=== PATIENT | male | born 1995 | race Caucasian/White ===

== ENCOUNTER 2017-12-06 09:54 | Emergency (ER) | payer MEDICAID ==
[2017-12-06 10:00] VITALS: BP 112/65
--- NOTE | 2017-12-06 10:03 | EDPHY ---
H & P Stated Complaint: Vomiting and diarrhea Time Seen by Provider: 12/06/17 10:03 HPI/ROS: CHIEF COMPLAINT: Vomiting and diarrhea HISTORY OF PRESENT ILLNESS: The patient presents to the ED with a 2 day history of vomiting and diarrhea. The patient reports mild associated crampy abdominal pain. He denies any fever, recent antibiotic use or travel outside the [place]. He denies any melena or hematemesis. The patient denies significant past medical history. The patient denies prior history of surgery. REVIEW OF SYSTEMS: A comprehensive 10 point review of systems is otherwise negative aside from elements mentioned in the history of present illness. Source: Patient Exam Limitations: No limitations - Personal History Current Tetanus Diphtheria and Acellular Pertussis (TDAP): Yes - Medical/Surgical History Hx Asthma: No Hx Chronic Respiratory Disease: No Hx Diabetes: No Hx Cardiac Disease: No Hx Renal Disease: No Hx Cirrhosis: No Hx Alcoholism: No Hx HIV/AIDS: No Hx Splenectomy or Spleen Trauma: No Other PMH: denies - Social History Smoking Status: Current every day smoker - Physical Exam Exam: General Appearance: Alert, no distress Eyes: Pupils equal and round no pallor or injection ENT, Mouth: Mucous membranes moist Respiratory: There are no retractions, lungs are clear to auscultation Cardiovascular: Regular rate and rhythm Gastrointestinal: Soft nontender, normal bowel sounds Neurological: 5/5 strength all 4 extremities Skin: Warm and dry, no rashes Musculoskeletal: Neck is supple nontender Extremities: symmetrical, full range of motion Constitutional: Initial Vital Signs Temperature (C) 37 C 12/06/17 09:57 Heart Rate 51 L 12/06/17 09:57 Respiratory Rate 16 12/06/17 09:57 Blood Pressure 112/65 12/06/17 09:57 O2 Sat (%) 96 12/06/17 09:57 O2 Delivery Mode Room Air Allergies/Adverse Reactions: No Known Allergies Allergy (Unverified 12/06/17 09:56) Home Medications: Medication Instructions Recorded Ondansetron Odt [Zofran Odt] 4 mg PO Q4PRN PRN #20 tab 12/06/17 Medical Decision Making ED Course/Re-evaluation: The patient presents to the ED with 2 days of vomiting and diarrhea. The patient's abdominal examination is benign in his vital signs are stable. I suspect a viral gastroenteritis. The patient will be instructed to use Zofran and Imodium for management of his symptoms. The patient has been instructed to return to the ED for markedly worsening symptoms or other concerns as this may the sign of a worsening condition requiring further evaluation. Departure - Departure Disposition: Home, Routine, Self-Care Clinical Impression: Gastroenteritis Condition: Good Instructions: Gastroenteritis (ED) Additional Instructions: 1. Please take Imodium as directed. This is available [id number] at a drug store pharmacy. 2. Zofran as needed for nausea and vomiting. 3. Please return to the ED immediately for worsening symptoms, increasing abdominal pain, fever or other concerns as this may be the sign of a worsening condition will requiring further evaluation.
== END 2017-12-06 10:20 | disposition home or self-care (01) ==
DX: K52.9 Noninfective gastroenteritis and colitis, unspecified (principal); F17.200 Nicotine dependence, unspecified, uncomplicated

== ENCOUNTER 2017-12-30 13:42 | Emergency (ER) | payer MEDICAID ==
[2017-12-30 13:49] VITALS: BP 119/71
--- NOTE | 2017-12-30 14:08 | EDPHY ---
H & P Stated Complaint: blister on lip Time Seen by Provider: 12/30/17 14:02 HPI/ROS: HPI: This is a 22-year-old male who presents with Chief Complaint: Blister on lip Location: Right upper lip Quality: Blister Duration: 2 days Signs and Symptoms: no fever, no nausea, no vomiting, no diarrhea, no urinary symptoms, no chest pain, no shortness of breath, no wheezing, no cough, no sore throat, no neck stiffness, no joint pain, no swollen glands, no ear pain, no rash Timing: Acute Severity: Mild Context: Patient complains that he has a blister on his upper lip for the last 2 days. For the last 4 days he has had nasal congestion and runny nose. He denies any cough, sore throat, swollen glands. He regularly he uses marijuana and smokes cigarettes. Reports that he has been in and out of nursing home several times last time was last year. Eating and drinking without difficulty. He works at the [employer] and went to work today and his boss told him that he needed a doctor's note to return to work. Modifying Factors: None Comment: ROS: A comprehensive 10 system review of systems is otherwise negative aside from elements mentioned in the history of present illness. MEDICAL/SURGICAL/SOCIAL HISTORY: Medical history: Generally healthy. Does not take any regular medications. Surgical history: Denies Social history: Marijuana and tobacco user. Family history noncontributory. CONSTITUTIONAL: awake and alert, no obvious distress HEENT: Atraumatic and normocephalic, PERRL, EOMI. Nares patent; no rhinorrhea; no nasal mucosal edema. Tympanic membranes clear. Oropharynx clear, no exudate and moist pink mucosa. Airway patent. No lymphadenopathy. No meningismus. Cardiovascular: Normal S1/S2, regular rate, regular rhythm, without murmur rub or gallop. PULMONARY/CHEST: Symmetrical and nontender. Clear to auscultation bilaterally. Good air movement. No accessory muscle usage. ABDOMEN: Soft, nondistended, nontender, no rebound, no guarding, no peritoneal signs, no masses or organomegaly. No CVAT. EXTREMITIES: 2/2 pulses, strength 5/5, no deformities, no clubbing, no cyanosis or edema. NEUROLOGICAL: no focal neuro deficits. GCS 15. SKIN: Warm and dry, mucocutaneous vesicles near the vermilion borders noted on right upper lip; no rash. Good capillary refill. Source: Patient Exam Limitations: No limitations - Personal History Current Tetanus/Diphtheria Vaccine: Yes Current Tetanus Diphtheria and Acellular Pertussis (TDAP): Yes - Medical/Surgical History Hx Asthma: No Hx Chronic Respiratory Disease: No Hx Diabetes: No Hx Cardiac Disease: No Hx Renal Disease: No Hx Cirrhosis: No Hx Alcoholism: No Hx HIV/AIDS: No Hx Splenectomy or Spleen Trauma: No Other PMH: denies - Social History Smoking Status: Current every day smoker Constitutional: Initial Vital Signs Temperature (C) 37.1 C 12/30/17 13:46 Heart Rate 71 12/30/17 13:46 Respiratory Rate 16 12/30/17 13:46 Blood Pressure 119/71 12/30/17 13:46 O2 Sat (%) 95 12/30/17 13:46 O2 Delivery Mode Room Air Allergies/Adverse Reactions: No Known Allergies Allergy (Unverified 12/30/17 13:46) Home Medications: Medication Instructions Recorded Ondansetron Odt [Zofran Odt] 4 mg PO Q4PRN PRN #20 tab 12/06/17 Acyclovir [Zovirax 400 mg (*)] 400 mg PO Q8 7 Days tab 12/30/17 Medical Decision Making ED Course/Re-evaluation: Not immunocompromised. Vital signs reviewed and stable upon arrival. Afebrile. Oral lesion is consistent with HSV infection. Given a prescription for acyclovir with contact precautions. No signs of bronchitis/sinusitis/meningitis/otitis media Work note provided. This patient was seen under the supervision of my secondary supervising physician. I evaluated care for this patient independently. Discussed this patient with Dr. Alvarado. Differential Diagnosis: Differential diagnosis includes is limited to herpes simplex virus, upper respiratory infection, bronchitis. Departure - Departure Disposition: Home, Routine, Self-Care Clinical Impression: Oral herpes simplex infection, Herpes labialis without complication Upper respiratory infection Qualifiers: URI type: unspecified viral URI Qualified Code(s): J06.9 - Acute upper respiratory infection, unspecified Condition: Good Instructions: Oral Herpes Simplex Virus Infections (ED), Upper Respiratory Infection (ED) Additional Instructions: Consume a minimum of 8-10 glasses of water or electrolyte fluid replacement drinks that include Gatorade, Powerade, Pedialyte. Rest as much possible until you are feeling better. Take Acyclovir three times per day x7 days. Do not skip a dose. Take Mucinex as needed for nasal congestion. Take [id number] cold medications as needed for cold symptoms. Avoid smoking tobacco or marijuana until all symptoms have resolved. Please establish care at the [facility]. Please do not share drinks or kiss anyone until oral sore has healed. Referrals: [facility],. [Clinic] - As per Instructions Stand Alone Forms: Work Excuse Prescriptions: Acyclovir [Zovirax 400 mg (*)] 400 mg PO Q8 7 Days tab
== END 2017-12-30 14:22 | disposition home or self-care (01) ==
DX: B00.1 Herpesviral vesicular dermatitis (principal); J06.9 Acute upper respiratory infection, unspecified

== ENCOUNTER 2018-06-27 12:37 | Emergency (ER) | payer MEDICAID ==
--- NOTE | 2018-06-27 12:54 | EDPHY ---
H & P Smoking Status: Current every day smoker Time Seen by Provider: 06/27/18 12:47 HPI/ROS: CHIEF COMPLAINT: Left thumb laceration HISTORY OF PRESENT ILLNESS: 22-year-old male right-hand dominant male, up-to- date tetanus was at work cutting vegetables any sustained accidental laceration tip of left thumb. No paresthesia. Occurred shortly prior to arrival. PRIMARY CARE PROVIDER: REVIEW OF SYSTEMS: 10 systems reviewed and are negative with exception of illness mentioned in the history of present illness PHYSICAL EXAM (Prior to examination, patient consented to physical exam, hands were washed and my usual and customary physical exam procedures followed) 1) GENERAL: Well-developed, well-nourished, alert and oriented. Appears to be in no acute distress. 2) HEAD: Normocephalic 3) HEENT: sclera anicteric 4) LUNGS: Breathing comfortably. 5) SKIN: ][ Left thumb distal phalanx 2 cm flap laceration with viable flap tissue. No signs of infection. (Katya West) Constitutional: Initial Vital Signs Temperature (C) 36.6 C 06/27/18 12:41 Heart Rate 69 06/27/18 12:41 Respiratory Rate 16 06/27/18 12:41 Blood Pressure 144/60 H 06/27/18 12:41 O2 Sat (%) 100 06/27/18 12:41 O2 Delivery Mode Room Air Allergies/Adverse Reactions: No Known Allergies Allergy (Unverified 12/30/17 13:46) Home Medications: Medication Instructions Recorded NK [No Known Home Meds] 06/27/18 MDM/Departure - [facility] Procedures: Procedure: Laceration repair. I explained the indications, risks and benefits for both laceration repair and anesthetic administration. Verbal consent was obtained from the patient. The laceration on the left thumb was anesthetized using 0.5% bupivicaine without epinephrine. After anesthetic administered the patient was observed for a period of time and had no apparent adverse effects. The wound was cleaned, prepped, draped in normal sterile fashion and explored to its base. No foreign body seen, no foreign bodies palpated. There were no deep structures involved. The wound was repaired with 2 simple interrupted 5 O Prolene sutures. The wound repair was simple. The procedure was performed by myself. Patient has been informed that scarring will occur, although efforts have been made to minimize this. (Katya West) ED Course/Re-evaluation: I did not see this patient while he was in the emergency department. However his care was discussed with the PA while the patient was in the department. I agree with treatment plan and management (Bennett Walters) Patient feels comfortable being discharged. All questions and concerns addressed by myself. Patient given my usual and customary discharge precautions and instructions regarding their clinical impression. Care of patient under supervision of secondary supervising physician Dr Bennett Walters ( Katya West) - Depart Disposition: Home, Routine, Self-Care Clinical Impression: Laceration of thumb Qualifiers: Encounter type: initial encounter Damage to nail status: without damage Foreign body presence: without foreign body Laterality: left Qualified Code(s): S61.012A - Laceration without foreign body of left thumb without damage to nail , initial encounter Condition: Good Instructions: Care For Your Stitches (ED), Laceration (ED) Additional Instructions: Return to the ER if you develop redness, swelling, discharge, warmth to the wound, red streaks going up your arm, or any other symptoms that concern you. Referrals: Return, to the ER in 10 days for suture removal [Other] - As per Instructions
[2018-06-27 13:44] VITALS: BP 131/64
== END 2018-06-27 13:44 | disposition home or self-care (01) ==
PROC: 0HQGXZZ Repair Left Hand Skin, External Approach (ICD-10-PCS; principal; 2018-06-27)
DX: S61.012A Laceration without foreign body of left thumb without damage to nail, initial encounter (principal); W26.0XXA Contact with knife, initial encounter; Y93.G1 Activity, food preparation and clean up; Y99.0 Civilian activity done for income or pay

== ENCOUNTER 2018-07-05 16:11 | Emergency (ER) | payer MEDICAID ==
[2018-07-05 16:15] VITALS: BP 142/74
--- NOTE | 2018-07-05 16:28 | EDPHY ---
General Time Seen by Provider: 07/05/18 16:19 Narrative: CLINICAL IMPRESSION: Left thumb laceration ASSESSMENT/PLAN: 22-year-old male presents to the emergency department with a left thumb laceration. Patient lacerated the thumb 9 days ago in the same location, removed his sutures yesterday which was 3 days premature, was reaching into a bag today and caught to the edge of the thumb on a piece of plastic read lacerating the same area. Tetanus up-to-date. Wound was anesthetized, cleaned , repaired. Wound care discussed, signs and symptoms of infection reviewed, warning signs return to ED sooner outlined and discharge. DIFFERENTIAL DIAGNOSIS: includes but not limited to laceration of tendon or vascular structure, underlying fracture, laceration with retained FB ED PROCEDURES: Laceration Repair Verbal consent obtained by patient. Risks discussed, including but not limited to infection, pain, retained foreign body, need for additional repair, poor cosmetic result, tendon damage, nerve damage, poor wound healing, vascular damage. Alternatives to repair discussed. [place] protocol used to establish correct patient, procedure, equipment, patient support assistant, and site. Anesthesia obtained by local infiltration. Anesthetized with 1% lidocaine without epinephrine. Laceration location distal tip of left thumb, length 0.5 cm, depth 2 mm, Repair type simple. Patient was prepped and draped in usual sterile fashion. Hemostasis achieved with direct pressure. Wound explored through full range of motion and entire depth of wound probed and visualized with gloved finger. No suspicion for nerve damage, tendon damage, underlying fracture, vascular damage, foreign body, or contamination. Area was cleansed with Shur-Clens and irrigated with sterile saline as per protocol. No foreign body or material removed. Repair method 4 0 Prolene simple interrupted sutures . To sutures placed. Well aligned, closely approximated. wound was dressed with bacitracin and bandage. Patient tolerated well with no immediate complications. Wound care: Clean and dry x 24 hours, gently clean with soap and water, cover with topical antibiotic ointment/bandage. Suture/Staple removal: 10 Days CHIEF COMPLAINT: Laceration HPI: 22-year-old otherwise healthy male presents to the emergency department with an acute left thumb laceration. Patient was seen for laceration to this thumb less than 10 days ago, removed his own sutures prematurely, reports the wound was healed and the put his hand into a back today and caught the edge of the thumb on a piece of sharp plastic real lacerating the thumb in the same location. No other injuries. Tetanus up-to-date. No loss of sensation to the tip of the thumb. PAST MEDICAL HISTORY: None reported Pertinent Past Surgical History: None reported Social History: tetanus up-to-date REVIEW OF SYSTEMS: All other systems negative Constitutional: No fever, no chills Musculoskeletal: No deformity, no joint pain Skin: Laceration to distal tip of left thumb Neurological: No sensory loss or weakness, 2 point discrimination intact. PHYSICAL EXAM: General Appearance: Alert, oriented, appropriate for age, cooperative, NAD, well hydrated, non-toxic appearing, VSS, no hypoxia. Neurological: Alert and oriented x 3 Skin: 0.5 cm laceration to the tip of distal left thumb Musculoskeletal: Full range of motion of left thumb and hand MEDICAL DECISION MAKING: Patient was seen independently. Secondary supervising physician at time of evaluation was Dr. Duffy. Diagnosis: Left thumb laceration. New, requires workup Summary: See assessment and plan for summary of ED visit Patient Progress improved, stable for discharge. - History Smoking Status: Current every day smoker - Objective Vital Signs: Initial Vital Signs Temperature (C) 36.9 C 07/05/18 16:12 Heart Rate 77 03/24/19 16:12 Respiratory Rate 16 07/05/18 16:12 Blood Pressure 142/74 H 07/05/18 16:12 O2 Sat (%) 96 07/05/18 16:12 O2 Delivery Mode Room Air Allergies/Adverse Reactions: No Known Allergies Allergy (Unverified 12/30/17 13:46) Home Medications: Medication Instructions Recorded NK [No Known Home Meds] 06/27/18 Departure - Departure Disposition: Home, Routine, Self-Care Condition: Good Instructions: Laceration (ED) Additional Instructions: DISCHARGE INSTRUCTIONS FROM YOUR DOCTOR Thank you for visiting our emergency department today. You were treated by a physician insurance underwriting assistant today and your case was reviewed with our ED Attending physician. Please keep in mind that discharge from the emergency department does not mean that there is nothing wrong - it simply means that we have not identified an emergency condition that requires further evaluation or treatment in the hospital. You should always plan to follow up with primary care for re- evaluation of your condition in the next 2-3 days. If you have been referred to a specialist, please call as soon as possible (today or tomorrow) to schedule your follow up appointment at the appropriate time. PLEASE HAVE SUTURES/SENA REMOVED IN 10 DAYS. YOU CAN RETURN TO THE EMERGENCY DEPARTMENT OR YOUR PRIMARY CARE FOR SUTURE/STAPLE REMOVAL. AVOID SUBMERGING SUTURES/SENA UNDERWATER FOR PROLONGED PERIOD OF TIME UNTIL REMOVED. KEEP WOUND CLEAN AND DRY, COVER WITH ANTIBIOTIC OINTMENT AND BAND-AID. RETURN TO EMERGENCY DEPARTMENT FOR REDNESS, SWELLING, DISCHARGE, WARMTH TO THE SKIN, OR ANY OTHER CONCERNS FOR INFECTION. People present with illnesses and injuries in different ways, and it is always possible that we have missed something. You may always return for re-evaluation if symptoms worsen or if they are not improving or if you develop new/different symptoms. Again, thank you for choosing our emergency department. We hope that you feel better. Referrals: Marlean Rico MD [Medical Doctor] - As per Instructions
== END 2018-07-05 16:44 | disposition home or self-care (01) ==
PROC: 0HQGXZZ Repair Left Hand Skin, External Approach (ICD-10-PCS; principal; 2018-07-05)
DX: S61.012D Laceration without foreign body of left thumb without damage to nail, subsequent encounter (principal); W26.2XXA Contact with edge of stiff paper, initial encounter

== ENCOUNTER 2018-09-27 17:13 | Emergency (ER) | payer OTHER, MEDICAID | END 2018-09-27 18:37 | disposition home or self-care (01) ==